=== PATIENT | female | born 1985 | race African-American/Black ===

== ENCOUNTER 2017-07-13 14:54 | Emergency (ER) | payer MEDICARE, MEDICAID ==
[~2017-07-13] VITALS: Ht 157.5 cm; Wt 60.0 kg
[2017-07-13 15:55] LABS: HEMATOCRIT 41.9 % (37.0-47.0); IMMATURE GRANULOCYTES 0.8 % (0.0-1.0); MEAN CELL VOLUME 86.4 fL CALC (80.0-100.0); MEAN CORPUSCULAR HGB 24.7 pG CALC (26.0-32.0); MEAN CORPUSCULAR HGB CONC 28.6 g/L CALC (32.0-36.0); NEUT# 5.4 thou/uL (2.00-7.15); RED BLOOD COUNT 4.85 mill/uL (4.20-5.60); RED CELL DISTRI WIDTH 17.3 % (11.5-15.5)
[2017-07-13 16:12] LABS: ALBUMIN 4.4 g/dL (3.2-5.0); BILIRUBIN, TOTAL 0.6 mg/dL (0.0-1.4); CALCIUM 9.5 mg/dL (8.4-10.2); TOTAL PROTEIN 7.6 g/dL (6.3-8.2)
[2017-07-13 16:21] LABS: CREATININE 13.8 mg/dL (0.5-1.0); POTASSIUM 5.4 mmol/l (3.5-5.1)
[2017-07-13] MEDS ORDERED: CLONIDINE0.3 MG PO (17:35)
[2017-07-13] MEDS ORDERED: NIFEDIPINE10 M3 PO (17:36)
[2017-07-13] MEDS ORDERED: LISI20TA5 (17:36)
[2017-07-13 18:36] VITALS: BP 117/73
== END 2017-07-13 18:36 | disposition short-term general hospital (02) ==
LOC: ED 14:54
PROVIDERS: Emergency Medicine
PROC: 0BH17EZ Insertion of Endotracheal Airway into Trachea, Via Natural or Artificial Opening (ICD-10-PCS; principal; 2017-07-13)
DX: J96.01 Acute respiratory failure with hypoxia (principal); E87.79 Other fluid overload; N18.6 End stage renal disease; Z99.2 Dependence on renal dialysis; M54.9 Dorsalgia, unspecified
CPT/HCPCS: J2060